=== PATIENT | female | born 1995 | race Two or more races ===

== ENCOUNTER 2025-10-11 11:26 | Emergency (ER) | payer MEDICAID, SELFPAY ==
[2025-10-11 12:29] VITALS: BP 132/87; PULSE 107; RESP 18; TEMP 36.8; O2SAT 96; BMI 29.8
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
[2025-10-11] MEDS: ACETAMINOPHEN 500 MG TABLET 1000 MG PO (13:19)
== END 2025-10-11 15:27 | disposition home or self-care (01) ==
LOC: SERX 13:00
PROVIDERS: Emergency Provider Emergency Medicine; PCP Family Medicine
DX: S00.03XA Contusion of scalp, initial encounter (principal); S60.511A Abrasion of right hand, initial encounter; W22.8XXA Striking against or struck by other objects, initial encounter; Y92.811 Bus as the place of occurrence of the external cause
CPT/HCPCS: 99281; A9270